=== PATIENT | male | born 2000 | race African-American/Black ===

== ENCOUNTER 2020-06-14 10:45 | Emergency (ER) | payer BC ==
[~2020-06-14] VITALS: Ht 190.5 cm; Wt 106.0 kg
[2020-06-14] MEDS ORDERED: IBUPROFEN 400MG TABLET PO ONE (11:15)
[2020-06-14] MEDS ORDERED: BACITRACIN ZINC OINT UDPKT TOP ONE (11:15)
[2020-06-14] MEDS ORDERED: HYDROCODONE/ACETAMINOPHEN 5/325MG TABLET PO ONE (11:15)
[2020-06-14] MEDS ORDERED: LIDOCAINE HCL/EPINEPHRINE 1%-EPI 1:100,000 10 ML VIAL IJ ONE (11:15)
[2020-06-14] MEDS ORDERED: LIDOCAINE HCL/PF 1% 10 MG/ML 5ML VIAL IJ ONE (13:00)
[2020-06-14 14:55] VITALS: BP 112/65
[2020-06-14] MEDS ORDERED: IBUP-2028 MT (15:06)
== END 2020-06-14 15:31 | disposition home or self-care (01) ==
LOC: ER 11:06
DX: S01.01XA Laceration without foreign body of scalp, initial encounter (principal); S63.297A Dislocation of distal interphalangeal joint of left little finger, initial encounter; S50.312A Abrasion of left elbow, initial encounter; S50.311A Abrasion of right elbow, initial encounter; S60.512A Abrasion of left hand, initial encounter; S80.212A Abrasion, left knee, initial encounter; S80.211A Abrasion, right knee, initial encounter; Y93.55 Activity, bike riding; Y92.488 Other paved roadways as the place of occurrence of the external cause
CPT/HCPCS: 12002; 12013; 26770; 70450; 73130; 73140; 73562; 93005; 99285; J3490; Z7610

== ENCOUNTER 2020-06-18 10:44 | Emergency (ER) | payer BC ==
[~2020-06-18] VITALS: Ht 190.5 cm; Wt 100.0 kg
[~2020-06-18 10:44] MED LIST: IBUP-2028 MT
[2020-06-18 10:56] VITALS: BP 142/89
== END 2020-06-18 11:52 | disposition home or self-care (01) ==
LOC: ER 10:44
DX: Z48.02 Encounter for removal of sutures (principal)
CPT/HCPCS: 99281

== ENCOUNTER 2022-01-04 07:41 | Emergency (ER) | payer BC ==
[~2022-01-04] VITALS: Ht 190.5 cm; Wt 98.0 kg
[2022-01-04] MEDS ORDERED: ACETAMINOPHEN 325MG TABLET PO ONE (09:00)
[2022-01-04] MEDS ORDERED: AMOX1TAB16 MT (10:08)
[2022-01-04] MEDS ORDERED: DEXAMETHASONE 10 MG/ML VIAL IV ONE (10:30)
[2022-01-04] MEDS ORDERED: SODIUM CHLORIDE 0.9% 1,000 ML IV ONE (11:00)
[2022-01-04 12:15] VITALS: BP 148/88
[2022-01-05] MEDS ORDERED: IBUP-2030 MT (22:21)
[2022-01-05] MEDS ORDERED: P20 MT (22:21)
== END 2022-01-04 12:20 | disposition home or self-care (01) ==
LOC: ER 07:41
DX: J02.0 Streptococcal pharyngitis (principal); R03.0 Elevated blood-pressure reading, without diagnosis of hypertension; R00.0 Tachycardia, unspecified
CPT/HCPCS: 87430; 96361; 96374; 99283; J1100; J7030

== ENCOUNTER 2022-01-05 18:33 | Emergency (ER) | payer BC ==
[~2022-01-05] VITALS: Ht 190.5 cm; Wt 91.0 kg
[~2022-01-05 18:33] MED LIST changes: +AMOX1TAB16 MT
[2022-01-05 18:57] VITALS: BP 161/100
[2022-01-05] MEDS ORDERED: P20 MT (22:21)
[2022-01-05] MEDS ORDERED: IBUP-2030 MT (22:21)
== END 2022-01-05 23:00 | disposition home or self-care (01) ==
LOC: ER 18:33
DX: J02.0 Streptococcal pharyngitis (principal)
CPT/HCPCS: 99283

== ENCOUNTER 2023-05-16 06:42 | Emergency (ER) | payer BC ==
[~2023-05-16] VITALS: Ht 190.5 cm; Wt 91.0 kg
[~2023-05-16 06:42] MED LIST changes: +IBUP-2030 MT; +P20 MT
[2023-05-16 06:50] VITALS: BP 144/85; PULSE 90; RESP 12; TEMP 98.3; O2SAT 98
[2023-05-16] MEDS: DEXAMETHASONE 10 MG/ML VIAL IV ONE (07:00)
== END 2023-05-16 09:21 | disposition home or self-care (01) ==
LOC: ER 06:53
DX: J02.9 Acute pharyngitis, unspecified (principal)
CPT/HCPCS: 99283; 96374; 87430; 87070; J1100

== ENCOUNTER 2024-01-31 08:47 | Emergency (ER) | payer BC ==
[~2024-01-31] VITALS: Ht 188 cm; Wt 108.0 kg
[2024-01-31 09:02] VITALS: O2SAT 98
[2024-01-31] MEDS ORDERED: SULF1TAB48 MT (09:48)
[2024-01-31] MEDS ORDERED: AMOX1TAB16 MT (09:48)
[2024-01-31 10:44] VITALS: BP 104/84; PULSE 90; RESP 16; TEMP 36.66960; O2SAT 98
== END 2024-01-31 10:47 | disposition home or self-care (01) ==
LOC: ER 08:47
DX: J02.9 Acute pharyngitis, unspecified (principal); H60.392 Other infective otitis externa, left ear; Z98.890 Other specified postprocedural states
CPT/HCPCS: 99283